=== PATIENT | female | born 1945 | race Caucasian/White ===

== ENCOUNTER 2016-09-13 19:02 | Emergency (ER) | payer OTHER ==
[~2016-09-13] VITALS: Ht 142.2 cm; Wt 86.5 kg
[~2016-09-13 19:02] MED LIST: ALBU8.5H3 INH; AMIT25TA9 PO; ASPI81TA50 PO; FURO40TA4 PO; IBUP800T25 PO; INSU100C SC; LANT3I SC; LEVO150T67 PO; LOSA100T7 PO; METO25TA4 PO; NIFE90TA11 PO; PRED20TA PO; TRAM50TA2 PO
[2016-09-13 19:07] VITALS: Ht 142.2 cm; Wt 86.5 kg
--- NOTE | 2016-09-13 21:53 | ERD ---
ER Documentation Chief Complaint Date/Time DATE: 09/13/16 TIME: 21:51 Chief Complaint COUGH X 3 DAYS. NO FEVER. NEEDS XRAY OF LT KNEE D/T INJURY HPI This is a 71-year-old female presents to the ER with a cough for the last 3 days. Cough is productive and constant, patient states she has a past medical history of asthma and states that the cough is making her asthma worse. She denies any fevers or chills. She denies any sore throat or ear pain. She denies headaches, body pain. Patient denies any nausea vomiting or diarrhea. Patient fell a few months ago and is requesting bilateral knee x-rays to see a specialist. She has an appointment in 1 week to see a specialist. ROS 12 point review of systems was done, all negative except per HPI. Medications Home Meds Active Scripts Azithromycin* (Zithromax*) 250 Mg Tablet, 250 MG PO .ZPACK DIRECTED, #6 TAB TAKE 500 MG (2 TABS) THE FIRST DAY THEN 250 MG (1 TAB) DAYS 2-5 Prov:PATRICIA FERRER 09/13/16 Tramadol HCl (Tramadol HCl) 50 Mg Tablet, 50 MG PO Q4 Y for PAIN, #20 TAB Prov:PETRA HERNANDES MD 02/23/16 Albuterol Sulfate* (Proair HFA*) 8.5 Gm Hfa.aer.ad, 2 PUFF INH Q4, #1 INHALER Prov:PATRICE PRO MD 08/14/15 Prednisone* (Prednisone*) 20 Mg Tab, 40 MG PO DAILY for 4 Days, TAB Prov:PATRICE PRO MD 08/14/15 Reported Medications Insulin Lispro (Humalog) 100 U/Ml Cartridge, 10-15 UNITS SC WITH BREAKFAST DINNE , EA 08/14/15 Insulin Glargine* (Lantus*) 100 Unit/Ml Soln, 42 UNIT SC DAILY, #1 VIAL 08/14/15 Aspirin (Aspir-Low) 81 Mg Tablet.dr, 81 MG PO DAILY 08/14/15 Metoprolol Tartrate* (Lopressor*) 25 Mg Tablet, 25 MG PO BID, #60 TAB 08/14/15 Losartan Potassium* (Losartan Potassium*) 100 Mg Tablet, 100 MG PO DAILY, TAB 08/14/15 Nifedipine* (Nifedipine ER*) 90 Mg Tablet.er, 90 MG PO DAILY, TAB 08/14/15 Levothyroxine Sodium* (Levothyroxine Sodium*) 150 Mcg Tablet, 150 MCG PO BEFORE BREAKFAST, #30 TAB 08/14/15 Ibuprofen* (Ibuprofen*) 800 Mg Tab, 800 MG PO TID, TAB 08/14/15 Amitriptyline Hcl* (Amitriptyline Hcl*) 25 Mg Tablet, 25 MG PO QHS, #30 TAB 08/14/15 Furosemide* (Furosemide*) 40 Mg Tablet, 40 MG PO DAILY, TAB 08/14/15 Allergies Allergies: Uncoded Allergies: SULFA (Allergy, Unknown, RASH, 08/14/15) PMhx/Soc History of Surgery: Yes (appy) Anesthesia Reaction: No Hx Neurological Disorder: No Hx Respiratory Disorders: Yes (asthma) Hx Cardiac Disorders: Yes (htn, high cholesterol) Hx Psychiatric Problems: No Hx Miscellaneous Medical Probl: Yes (dm, thyroid) Hx Alcohol Use: No Hx Substance Use: No Hx Tobacco Use: No Smoking Status: Never smoker Physical Exam Vitals Vital Signs Date Time Temp Pulse Resp B/P Pulse Ox O2 Delivery O2 Flow Rate FiO2 09/14/16 00:29 97.7 72 16 156/89 94 Room Air 09/13/16 19:07 98.4 73 22 148/67 94 Physical Exam GENERAL: The patient is well-developed, well-nourished, in no acute distress. NECK: Cervical spine is non tender with no step off. Supple, no nuchal rigidity HEENT: Atraumatic. Pupils equal, round and reactive to light. Extraocular muscles are grossly intact. Conjunctivae pink, no discharge. Bilateral tympanic membranes are clear with no evidence of erythema, effusion or dulling of the light reflex. Tonsilar erythema with no exudates or uvular deviation. Clear rhinorrhea. RESPIRATORY: Clear to auscultation bilaterally. There are no rales, wheezes or rhonchi. HEART: Regular rate and rhythm. No murmurs, clicks, rubs or gallops. EXTREMITIES: No clubbing or cyanosis. Full range of motion. Grossly neurovascularly intact. Patient has full range of motion bilateral knees. No erythema, deformities, ecchymosis, or effusions. Negative anterior drawer negative posterior drawer negative Lockman test bilaterally. +2 pulses. Sensations are intact to L4 L5-S1. NEUROLOGIC: Alert and oriented. Cranial nerves II through XII are intact. SKIN: There is no rash. The skin is warm and dry. Procedures/MDM This is a 71-year-old female that presents to the ER with bilateral knee pain and a cough for the last 3 days. Patient has had knee pain for months now and is being followed by orthopedic doctor, there is no evidence of acute fracture or dislocation. Patient is neurovascularly intact and is ambulatory. In regards to patient's cough she does have pneumonia on x-ray. She will be sent home with azithromycin. Patient is not hypoxic or in any respiratory distress. She is able to tolerate fluids by mouth and her appetite is normal. She is afebrile and extremely well-appearing she is stable for outpatient follow-up. Patient needs to follow-up with her primary care doctor within 1-2 days return to ER sooner if symptoms worsen. My medical decision making was shared with the patient she understands and agrees with plan. Departure Diagnosis: Primary Impression: Pneumonia Condition: Stable PATRICIA FERRER Sep 13, 2016 21:53
--- NOTE | 2016-09-13 23:03 | RADRPT ---
PROCEDURE: Chest. CLINICAL INDICATION: Chest pain. TECHNIQUE: Single frontal view of the chest was obtained. COMPARISON: 02/23/2016. FINDINGS: The cardiac silhouette is enlarged. The aortic arch is calcified. There are mild increased interst itial markings bilaterally. There is no pleural effusion. There is no pneumothorax. IMPRESSION: Bilateral mild increased interstitial markings could represent interstitial edema or infiltrates. Moderate cardiomegaly and aortic atherosclerosis. .Herb Dueñas MD, Date Time Electronically viewed and signed by .Herb Dueñas MD, MD on 09/13/2016 22:52 .T/
--- NOTE | 2016-09-13 23:03 | RADRPT ---
PROCEDURE: X-ray bilateral knees CLINICAL INDICATION: Bilateral knee pain. TECHNIQUE: 3 views of the right knee and 3 views of the left knee. COMPARISON: 02/23/2016. FINDINGS: Increased mild to moderate joint compartment narrowing in the medial bilateral knees. There is no ev ident bone on bone articulation. Small superior patellar enthesophytes. Small degenerative osteophy te at the lateral bilateral knee joint compartments, left greater than right. No evident acute fracture or dislocation. No joint effusions. Soft tissues unremarkable. IMPRESSION: Increased mild to moderate joint compartment narrowing in the bilateral medial knees, without bone o n bone articulation. RPTAT: [facility] Physician Jimy Date Time Electronically viewed and signed by Physician Jimy on 09/13/2016 22:52 RS/
[2016-09-13] MEDS ORDERED: AZIT250T94 PO (23:58)
[2016-09-14 00:29] VITALS: BP 156/89; PULSE 72; RESP 16; TEMP 97.7
== END 2016-09-14 00:30 | disposition home or self-care (01) ==
LOC: FTE 19:02
DX: J18.9 Pneumonia, unspecified organism (principal); J45.909 Unspecified asthma, uncomplicated; E11.9 Type 2 diabetes mellitus without complications; I10 Essential (primary) hypertension; Z79.4 Long term (current) use of insulin; Z79.82 Long term (current) use of aspirin
CPT/HCPCS: 71010

== ENCOUNTER 2017-01-12 14:05 | Emergency (ER) | payer OTHER ==
[~2017-01-12] VITALS: Ht 160 cm; Wt 80.0 kg
[~2017-01-12 14:05] MED LIST changes: +AZIT250T94 PO
[2017-01-12 14:08] VITALS: Ht 160 cm; Wt 80.0 kg
[2017-01-12] MEDS ORDERED: ALBUTEROL 0.5% (NEB) 2.5 MG/0.5 ML AMP INH STA ×2 (15:47→18:30)
[2017-01-12] MEDS ORDERED: IPRATROPIUM (NEB) 0.5 MG/2.5 ML AMP INH STA (15:47)
[2017-01-12] MEDS ORDERED: predniSONE 20 MG TAB PO STA (15:47)
--- NOTE | 2017-01-12 15:47 | ERD ---
ER Documentation Chief Complaint Date/Time DATE: 01/12/17 TIME: 15:47 Chief Complaint COUGH,SOB X1 WEEK HPI 72-year-old female, diabetic, hypertensive with history of depression, chronic lower extremity swelling and asthma presents to the ED complaining of a four- day history of increasing shortness of breath, wheezing and cough productive of greenish sputum. Odynophagia but no dysphagia or rhinorrhea. Denies chest pain or palpitations. No abdominal pain, nausea or vomiting. Chronic lower extremity swelling but no calf pain or redness. Subjective fevers and chills. ROS All systems reviewed and are negative except as per history of present illness. Medications Home Meds Active Scripts Budesonide* (Pulmicort* Flexhaler) 90 Mcg Aer.pow.ba, 1 PUFF INHALATION BID, #1 EA Prov:SHAYNE PAREKH MD 01/12/17 Prednisone* (Prednisone*) 20 Mg Tab, 40 MG PO DAILY for 4 Days, TAB Prov:SHAYNE PAREKH MD 01/12/17 Albuterol Sulfate* (Proair HFA*) 8.5 Gm Hfa.aer.ad, 2 PUFF INH Q4H Y for WHEEZING AND SOB, #1 INHALER Prov:SHAYNE PAREKH MD 01/12/17 Reported Medications Furosemide* (Furosemide*) 20 Mg Tablet, 20 MG PO DAILY, #60 TAB 01/12/17 Simvastatin* (Zocor*) 20 Mg Tablet, 20 MG PO QHS, #30 TAB 01/12/17 Insulin Lispro (Humalog) 100 U/Ml Cartridge, 16 UNITS SC WITH BREAKFAST DINNE, EA 08/14/15 Insulin Glargine* (Lantus*) 100 Unit/Ml Soln, 0 SC QHS, #1 VIAL TAKE 32-45 UNITS,DEPENDS HOW IS BS HIGH 08/14/15 Aspirin (Aspir-Low) 81 Mg Tablet.dr, 81 MG PO DAILY 08/14/15 Metoprolol Tartrate* (Lopressor*) 25 Mg Tablet, 25 MG PO BID, #60 TAB 08/14/15 Losartan Potassium* (Losartan Potassium*) 100 Mg Tablet, 100 MG PO DAILY, TAB 08/14/15 Nifedipine* (Nifedipine ER*) 90 Mg Tablet.er, 90 MG PO DAILY, TAB 08/14/15 Levothyroxine Sodium* (Levothyroxine Sodium*) 150 Mcg Tablet, 150 MCG PO BEFORE BREAKFAST, #30 TAB 08/14/15 Amitriptyline Hcl* (Amitriptyline Hcl*) 25 Mg Tablet, 25 MG PO QHS, #30 TAB 08/14/15 Discontinued Reported Medications Ibuprofen* (Ibuprofen*) 800 Mg Tab, 800 MG PO TID, TAB 08/14/15 Furosemide* (Furosemide*) 40 Mg Tablet, 40 MG PO DAILY, TAB 08/14/15 Discontinued Scripts Azithromycin* (Zithromax*) 250 Mg Tablet, 250 MG PO .HarinderPACK DIRECTED, #6 TAB TAKE 500 MG (2 TABS) THE FIRST DAY THEN 250 MG (1 TAB) DAYS 2-5 Prov:PATRICIA FERRER 09/13/16 Tramadol HCl (Tramadol HCl) 50 Mg Tablet, 50 MG PO Q4 Y for PAIN, #20 TAB Prov:PETRA HERNANDES MD 02/23/16 Albuterol Sulfate* (Proair HFA*) 8.5 Gm Hfa.aer.ad, 2 PUFF INH Q4, #1 INHALER Prov:PATRICE PRO MD 08/14/15 Prednisone* (Prednisone*) 20 Mg Tab, 40 MG PO DAILY for 4 Days, TAB Prov:PATRICE PRO MD 08/14/15 Allergies Allergies: Coded Allergies: Sulfa (Sulfonamide Antibiotics) (Unverified Allergy, Unknown, 01/12/17) PMhx/Soc Reviewed in chart. As per HPI. History of Surgery: Yes (appy) Anesthesia Reaction: No Hx Neurological Disorder: No Hx Respiratory Disorders: Yes (asthma, multiple ED visits most recent August 2016. No admissions or intubations.) Hx Cardiac Disorders: Yes (htn, high cholesterol) Hx Psychiatric Problems: No Hx Miscellaneous Medical Probl: Yes (dm, thyroid) Hx Alcohol Use: No Hx Substance Use: No Hx Tobacco Use: No FmHx No coronary artery disease, stroke or sudden cardiac . Physical Exam Vitals Vital Signs Date Time Temp Pulse Resp B/P Pulse Ox O2 Delivery O2 Flow Rate FiO2 01/12/17 20:05 98.1 98 20 136/72 96 Room Air 01/12/17 18:39 89 18 96 21 01/12/17 16:18 84 18 97 21 01/12/17 14:08 98.1 68 20 142/67 95 Physical Exam Const: Alert, mild respiratory distress Head: Atraumatic Eyes: Normal Conjunctiva ENT: Normal External Ears, Nose and Mouth. Neck: Full range of motion. JVD. Resp: Sounds diminished bilaterally with expiratory wheezing and prolonged expiratory phase. No rales or rhonchi. Cardio: Regular rate and rhythm, no murmurs Abd: Soft, obese, non tender, non distended. Normal bowel sounds Skin: No petechiae or rashes Back: No midline or flank tenderness Ext: No cyanosis, or edema. No calf swelling or tenderness. Neur: Awake and alert Psych: Does not appear anxious or depressed. Results 24 hrs Laboratory Tests Test 01/12/17 15:58 Bedside Glucose 85mg/dL Current Medications Medications (Trade) Dose Ordered Sig/Isaías Route PRN Reason Start Time Stop Time Status Last Admin Dose Admin Albuterol (Proventil 0.5% (Neb)) 15 mg ONCE STAT INH 01/12/17 15:47 01/12/17 15:50 DC 01/12/17 16:18 Ipratropium [place] (Atrovent 0.02% (Neb)) 1 mg ONCE STAT INH 01/12/17 15:47 01/12/17 15:50 DC 01/12/17 16:18 Prednisone (Prednisone) 60 mg ONCE STAT PO 01/12/17 15:47 01/12/17 15:50 DC 01/12/17 16:19 Albuterol (Proventil 0.5% (Neb)) 10 mg ONCE STAT INH 01/12/17 18:30 01/12/17 18:31 DC 01/12/17 18:39 PROCEDURE: XR Chest. CLINICAL INDICATION: Shortness of breath TECHNIQUE: Single frontal chest x-ray. COMPARISON: 09/13/2016 FINDINGS: The lungs are clear. No focal opacification is seen. No pneumothorax or pleural effusion is seen. Aortic arch atherosclerotic calcifications are present. The heart size is prominent. Otherwise, the cardiomediastinal silhouette is unremarkable. The osseous structures are grossly unremarkable. IMPRESSION: 1. No evidence of acute cardiopulmonary disease. 2. Mild cardiomegaly and aortic atherosclerosis. RPTAT: JJ .Declan Millan MD, MD Date Time Electronically viewed and signed by .Declan Millan MD, on 01/12/2017 17:02 .A/ Procedures/MDM DOCUMENTS REVIEWED: ED nurse, prior ED. Last seen August 2016 for similar symptoms and diagnosed with pneumonia. REEXAMINATION/REEVALUATION: Time: 18:15. Doing well. Feels significantly better but still with mild residual expiratory wheezing. repeat nebulized albuterol treatment as ordered. Time: 20:00. Symptoms resolved. No shortness of breath or cough. Lungs clear. No wheezing. Pulse Ox: 97% on RA. Requesting discharge. [employer] DECISION MAKIN-year-old female, diabetic, hypertensive with history of depression, chronic lower extremity swelling and asthma presents to the ED complaining of a four-day history of increasing shortness of breath. Patient presents with acute bronchospasm secondary to asthma exacerbation. Multiple previous ED visits for same. No radiographic evidence of pneumonia, pneumothorax or congestive heart failure. Symptoms improved with nebulized beta agonist and oral corticosteroids. Multiple previous visits for same. She has been treated with antibiotics previously but at this time bronchitis is likely due to a viral etiology. No chest pain or signs of acute coronary syndrome. Pulmonary embolism is unlikely. Stable for discharge with nebulized beta agonists and oral corticosteroids. Patient understands that she will need to pay patient understands the glycemic control be an issue while on the steroids and she misplaced her extension to her blood sugars. Understands to return to ED if worse or any other concerns. Stable for discharge with precautionary instructions and outpatient follow-up as counseled. Counseled patient regarding diagnostic workup, diagnosis and need for followup. Understands to return to ED if symptoms recur, worsen or any other concerns. OBSERVATION NOTE: At 16:00 the patient was entered into observation status to establish the need for admission. During this time the patient was treated for shortness of breath due to asthma exacerbation. Vitals signs were monitored and frequent repeat exams were performed. At 20:00 the patient was reexamined; VSS , afebrile, no further shortness of breath and lungs are clear without wheezing. pain resolved. Based on these findings the patient was discharged from observation period as it was determined that she met criteria for discharge. No family history of cancer or CAD. Total Observation Time: 4 hours. Departure Diagnosis: Primary Impression: Shortness of breath Additional Impression: Acute asthma exacerbation Asthma severity: moderate Asthma persistence: unspecified Qualified Code: J45.901 - Moderate asthma with acute exacerbation, unspecified whether persistent Condition: Stable (Improved) SHAYNE PAREKH MD Jan 12, 2017 15:47
--- NOTE | 2017-01-12 17:03 | RADRPT ---
PROCEDURE: XR Chest. CLINICAL INDICATION: Shortness of breath TECHNIQUE: Single frontal chest x-ray. COMPARISON: 09/13/2016 FINDINGS: The lungs are clear. No focal opacification is seen. No pneumothorax or pleural effusion is seen. Aortic arch atherosclerotic calcifications are present. The heart size is prominent. Otherwise, the cardiomediastinal silhouette is unremarkable. The osseous structures are grossly unremarkable. IMPRESSION: 1. No evidence of acute cardiopulmonary disease. 2. Mild cardiomegaly and aortic atherosclerosis. RPTAT: JJ .Declan Millan MD, MD Date Time Electronically viewed and signed by .Declan Millan MD, on 01/12/2017 17:02 .A/
[2017-01-12] MEDS ORDERED: SIMV20TA PO (17:08)
[2017-01-12] MEDS ORDERED: FURO20TA3 PO (17:08)
[2017-01-12] MEDS ORDERED: PRED20TA PO (20:00)
[2017-01-12] MEDS ORDERED: ALBU8.5H3 INH (20:00)
[2017-01-12] MEDS ORDERED: PULM90 INHALATION (20:00)
[2017-01-12 20:05] VITALS: BP 136/72; PULSE 98; RESP 20; TEMP 98.1
== END 2017-01-12 20:07 | disposition home or self-care (01) ==
LOC: E/R 14:05
DX: J45.901 Unspecified asthma with (acute) exacerbation (principal); E11.9 Type 2 diabetes mellitus without complications; I10 Essential (primary) hypertension; Z79.4 Long term (current) use of insulin; Z79.82 Long term (current) use of aspirin
CPT/HCPCS: 71010; 82962; 94644; 94645; 99284; J7512